=== PATIENT | female | born 1995 | race Caucasian/White ===

== ENCOUNTER 2025-06-03 21:56 | Emergency (ER) | payer MEDICAID, SELFPAY ==
[2025-06-03 21:58] VITALS: BP 121/79; PULSE 84; RESP 15; TEMP 36.1; O2SAT 99; BMI 24.5
--- NOTE | 2025-06-03 22:09 | ED.VIS.LOWEX ---
HPI History of Present Illness Chief Complaint: Lower Extremity Injury Informant: patient Narrative Narrative: 30-year-old female injured her left ankle. 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 She states she went down and did not injure anything else. She has been able to put partial weight on it all day but it has been very painful because she had to go forward with her work. Now it is 5 or 6 hours later, she presents to the ER on her way home for evaluation of it. She states as the evening went on, all her toes and heel has become a little tingly. PFSH PFSH Medical History no medical history no medical history Home Medications ?Medication ?Instructions ?Recorded ?Last Taken ?Type NK 06/03/25 Unknown History Allergy/AdvReac Type Severity Reaction Status Date / Time azithromycin Allergy Mild Rash Verified 06/03/25 21:57 latex Allergy Mild Rash Verified 06/03/25 21:57 Penicillins Allergy Mild Hives Verified 06/03/25 21:57 Social History Smoking Status: Never smoker ROS ROS ED Constitutional Constitutional ED: Denies chills or fever(s) Musculoskeletal Musculoskeletal: Reports extremity pain; Denies neck pain Integumentary Denies Abrasions, rash or wounds Neurologic Neurologic: Reports paresthesias; Denies weakness EXAM Physical Exam Const Vital Signs: 06/03/25 21:58 Temperature 97 F L Temperature Source Temporal Pulse Rate 84 Respiratory Rate 15 Blood Pressure 121/79 H Blood Pressure Mean 93 Pulse Ox 99 Oxygen Delivery Method Room Air Positive well nourished and well developed General Appearance ED: well developed and NAD Neck full ROM and supple Back/Spine normal ROM and normal to inspection Extremity Extremity Narrative: Rule left lateral malleolus swollen and tender without crepitance or deformity. Medial malleolus is nontender. There are some very minimal tenderness at the base of the fifth metatarsal but no swelling there. Proximal fibula is nontender. Ankle joint is stable when applying lateral talar forces. Strong dorsalis pedis pulse. Neuro oriented x3, no focal motor deficits and no sensory deficits noted Neuro Narrative: Sensation grossly intact throughout the left foot, subjectively different per patient. Sensorium / Orientation: alert Psych mental status grossly normal and thought process normal Skin no wounds Rashes: no rashes MDM MDM MDM Narrative Medical decision making narrative: Three-view x-ray series of the left ankle on my interpretation is negative for acute fracture or dislocation. Also do not see any bony involvement of the base of the fifth metatarsal. This is all consistent with an ankle sprain. Patient was placed in an Aircast stirrup, she was offered ibuprofen but she already taking Tylenol and she is currently breast-feeding so we gave her an ice pack instead. She will be offered crutches after she sees how she can get around with an Aircast, and advised to follow-up with her doctor in a couple weeks if she is not improving. She is comfortable with that plan. Discharge Plan Triage Chief Complaint: Lower Extremity Injury ED Provider: Juan C Obrien Dx/Rx/DC Orders Clinical Impression: Left ankle sprain Instructions: ED Ankle Sprain (Adult) Prescriptions: No Action NK Primary Care Provider: James Neil Referrals: [facility] Doctor,Out of [Non-Staff] - 10-14 Days if not better Print Language: [place] Disposition Disposition: Home, Self Care
--- NOTE | 2025-06-03 22:49 | RAD_ITS ---
PROCEDURE: ANKLE MIN 3 VIEWS 06/03/2025 REASON FOR EXAM: INJURY TECHNIQUE: Left ANKLE MIN 3 VIEWS COMPARISON: None FINDINGS: No displaced fracture or traumatic malalignment. Subtle linear density at the medial aspect of the distal fibular shaft. The talar dome appears intact. Mild soft tissue swelling laterally. No significant ankle joint effusion. Increased density projecting over the talar head. RAD/Ankle min 3 Views IMPRESSION: 1. Mild soft tissue swelling. Subtle linear sclerosis in the distal fibula ma y represent normal anatomic variation, though nondisplaced fracture is also possible. Consider repeat imaging in 10-14 days. 2. Density projecting over the talar head could represent an accessory ossicle or sequela of coalition. Consider dedicated left foot radiographs. Reading Location: [facility]
[2025-06-03 23:05] VITALS: BP 118/70; PULSE 80; RESP 18; TEMP 36.4; O2SAT 99
== END 2025-06-03 23:12 | disposition home or self-care (01) ==
LOC: ED 22:27
PROVIDERS: Emergency Provider Emergency Medicine; PCP Family Medicine; Visit Provider Emergency Medicine
DX: S93.402A Sprain of unspecified ligament of left ankle, initial encounter (principal); X58.XXXA Exposure to other specified factors, initial encounter; Y93.89 Activity, other specified; Y92.810 Car as the place of occurrence of the external cause
CPT/HCPCS: 73610; 99283